=== PATIENT | female | born 1985 | race Caucasian/White ===

== ENCOUNTER 2023-05-05 10:11 | Outpatient (CLI) | payer OTHER ==
--- NOTE | 2023-05-05 10:55 | Sleep Patient Instructions ---
Sleep Center Visit Summary - Patient Visit Information Reason for Visit: Initial consult for evaluation of sleep disordered breathing and other sleep issues. - Patient Instructions Instructions Attached: Sleep Study Additional Instructions: You will be completing a sleep study, either an in-lab polysomnography (PSG) or home sleep study (HST). You will follow-up in the sleep care office after the sleep study is completed to hear the results and talk about therapy, if needed. You will be called by our office staff to schedule this appointment, but you may contact us with any questions. - Clinic Information Contact: [facility] [address] [place] [address] [email or web address] T: [phone]
--- NOTE | 2023-05-05 11:00 | SLEEP CARE CONSULTATION ---
Information from patient questionnaire entered by Lucy Adames. I have reviewed and concur with the information entered by Lucy Adames. This document represents the service I personally performed and the decisions made by me, Georgie Dunlap ARNP. History of Present Illness Service Date and Time: 05/05/2023 1011 Reason for Visit: New patient Chief Complaint: reports: Unrefreshed sleep, Snoring, Fatigue Date of Onset: 2YRS Usual bedtime: 9PM Time it takes to fall asleep: 15-30MIN Snores at night: Yes Observed to quit breathing while asleep: No Number of times waking at night: 1-2 Reasons for waking at night: reports: Bathroom, Other (UNKNOWN). denies: Choking, Gasping for air Toss, Turn, or Twitch while sleeping: Yes Recalls having dreams: Yes Usually gets out of bed at: 525AM; weekends sometimes 0800 Feels refreshed in the morning: No Morning headache: Yes (2-3 times a week; 30 mins to 1 hr) Sleepy or fatigued during the day: Yes Ever fallen asleep while driving: No Takes day naps: Yes (usually on weekends for 1.5-2 hours) Dreams during day naps: Yes Prior sleep studies: No Additional HPI information: I had the pleasure of seeing PHILIPP ESPOSITO today regarding the possibility of her having a sleep disorder. Her current complaints are unrefreshed sleep, snoring and fatigue. She says she thinks she sleeps more than other people. She has been told by numerous roommates that she snored loudly. Her father was diagnosed with sleep apnea in the last couple years and is on a CPAP. She says he was always a loud snorer and there are many snorers in the family. She says she has noticed that she is more tired than others she has roomed with and will sleep for 9-10 hours of sleep if she does not have an alarm. She says when she wakes up she feeling tired but can feel mostly rested if able to get 9.5 hours of sleep. She says that she has noticed a "snort" awakening sometimes but denies feeling short of air or gasping. - Parasomnia Symptoms Ever been unable to move upon waking from sleep: No Walks in sleep: No Talks in sleep: No Ever acted out dreams in sleep: No Ever felt weak in the knees when startled or emotional: No Bothered by creepy, crawly, restless sensations in legs: No Problems with memory or concentration: Yes (both) Subjective Initial [place] Sleepiness Scale score: 9 (03/27/23) Past Medical History Past Medical History: reports: Other (no significant medical history) Social History The patient's occupation is a [employer]. Patient is Single and lives in . Have you smoked in the past 12 months: No Alcohol use: Yes Alcohol amount and frequency: 2-3 DRINKS 0-2 X A MONTH Caffeine use: Yes Caffeine amount and frequency: 1 LARGE COFFEE PER DAY Family History Family history of sleep disordered breathing: Yes Family Hx Sleep Apnea: Father: Snoring, Sleep apnea - Treated Allergies and Home Medications Known drug allergies: No Drug allergies reviewed: Yes Home medication list reviewed: Yes Allergy and home medication list: Home Medications Medication Instructions Recorded Confirmed Last Taken Type Acetaminophen [Tylenol] See Rx Instructions .ROUTE .COMPLEX 05/05/23 05/05/23 Unknown History Norgestimate-Ethinyl Estradiol See Rx Instructions .ROUTE .COMPLEX 05/05/23 05/05/23 Unknown History [Ortho Tri-Cyclen 28 Tablet] Review of Systems Cardiovascular: denies: high blood pressure Gastrointestinal: denies: heartburn Neurological: reports: headaches Psychiatric: denies: anxiety, depression Ear/Nose/Throat: reports: wisdom teeth removed. denies: tonsillectomy Endocrine: denies: thyroid disease Immunologic: reports: allergies to food or environment (seasonal) Physical Exam Vital signs obtained and entered by: LUCY Anderson MA Blood Pressure: 140/81 (LEFT ARM) Cuff size: regular Heart Rate: 70 O2 Saturation: 90 Height: 5 ft 4.5 in Weight: 147 lb 6.4 oz Body Mass Index: 24.9 BMI Classification: Normal Neck circumference: 12.5 Mouth and throat: narrow oropharynx Soft palate: long Hard palate: normal Uvula: normal Uvula visualization: 25% Mallampati Class III Tongue: enlarged in size with teeth mulligan on lateral edges Tonsils: 2+ Neck: normal w/o lymphadenopathy or thyromegaly Heart: regular rate and rhythm Lungs: clear bilaterally Impression and Plan 1. Suspected Obstructive Sleep Apnea-Hypopnea Syndrome, as suggested by a history of loud and irregular snoring, morning headache, unrefreshed sleep and cognitive impairment. Narrow oropharynx and obesity are common predisposing factors for obstructive sleep apnea-hypopnea syndrome. I recommend proceeding to polysomnography to confirm the diagnosis and to assess severity. If the patient has significant sleep disordered breathing, a manual CPAP titration study will also be performed to find the optimal treatment pressure. I informed the patient of what the sleep studies involve and after some discussion, obtained agreement to proceed. The pathophysiology of obstructive sleep apnea-hypopnea syndrome was discussed with the patient and health risks of cardiovascular and cerebrovascular disease if not treated. Risks of drowsy driving discussed in detail and patient advised to avoid long distance driving and to green chain puller at the first sign of drowsiness. Patient agreed to plan. * Schedule polysomnography. * Avoid long distance driving or driving when feeling sleepy. * Avoid alcohol, sedative and muscle relaxant around bedtime. * Attempt to lose weight. * Review instructions provided by trained office staff on how to prepare for the sleep study. * Return for follow-up after sleep study completed. Visit Type: In Office Time Spent with Patient (minutes): 30 Provider Statement: I spent 100% of the Face to Face Visit with the patient with greater than 50% spent counseling the patient and coordination of care.
[2023-05-05 11:06] VITALS: BP 140/81; O2SAT 90
== END 2023-05-05 10:12 | disposition home or self-care (01) ==
LOC: SC 10:11
PROVIDERS: ATTEND Nurse Practitioner Family
DX: R06.83 Snoring (principal); G47.8 Other sleep disorders; R51.9 Headache, unspecified; R53.83 Other fatigue; R41.89 Other symptoms and signs involving cognitive functions and awareness
CPT/HCPCS: 99203; 99212

== ENCOUNTER 2023-06-12 19:31 | Outpatient (CLI) | payer OTHER | END 2023-06-12 19:32 | disposition home or self-care (01) | LOC: SC 19:31 | PROVIDERS: ATTEND Nurse Practitioner Family | DX: G47.8 Other sleep disorders (principal); R51.9 Headache, unspecified; R53.83 Other fatigue | CPT/HCPCS: 95810 ==

== ENCOUNTER 2023-07-17 19:35 | Outpatient (CLI) | payer OTHER | END 2023-07-17 19:36 | disposition home or self-care (01) | LOC: SC 19:35 | PROVIDERS: ATTEND Nurse Practitioner Family | DX: R06.83 Snoring (principal); R41.89 Other symptoms and signs involving cognitive functions and awareness; R51.9 Headache, unspecified; G47.8 Other sleep disorders | CPT/HCPCS: 95810 ==

== ENCOUNTER 2023-07-24 13:36 | Outpatient (CLI) | payer OTHER ==
--- NOTE | 2023-07-24 14:10 | Sleep Patient Instructions ---
Sleep Center Visit Summary - Patient Visit Information Reason for Visit: Sleep study follow-up - Patient Instructions Instructions Attached: Snoring Tips Prevent Additional Instructions: Your sleep study today was negative for significant sleep disordered breathing. However, you did have elevated respiratory episodes when sleeping on your back. You should avoid sleeping on your back to control these respiratory episodes. You were found to have episodes of snoring. There are different ways to control snoring including weight loss, oral devices made by a dentist or surgical options through ENT specialist. You should not use oral devices that do not fit properly because they can affect your bite. You should also check insurance coverage of oral devices for snoring because they may not be cover well. You may obtain a referral to an ENT specialist through your primary provider. Follow-up as needed. - Clinic Information Contact[facility] [address] [place] [address] [email or web address] T: [phone]
--- NOTE | 2023-07-24 14:12 | SLEEP CARE CONSULTATION ---
Information from patient questionnaire entered by Laura Adames. I have reviewed and concur with the information entered by Laura Adames. This document represents the service I personally performed and the decisions made by , Georgie Dunlap ARNP. History of Present Illness Service Date and Time: 07/24/2023 1336 Initial [place] Sleepiness Scale score: 9 (03/27/23) Current [place] Sleepiness Scale score: 11 (07/24/23) Additional HPI information: PHILIPP ESPOSITO returns for follow up and results of the recently performed polysomnography. The patient was informed of the following findings: No significant sleep disordered breathing with an average AHI of 4.1 and darrius oxygen saturation of 87%. I explained the pathophysiology behind obstructive sleep apnea. Patient does not have sleep apnea and was advised how weight gain could increase the risk of developing sleep apnea in the future. Patient does not have significant sleep disordered breathing but has elevated AHI in supine position so advised positional therapy. Methods to achieve positional management therapy were discussed; such as, positioning with pillows, wearing a T-shirt with tennis balls sewn into the back or commercially available products. Patient had light to loud snoring. Snoring can be reduced by weight loss. Weight loss is best achieved with diet consult. Patient instructed to contact PCP for referral. Snoring can also be treated with an oral appliance from a dentist. Advised to check insurance coverage. In addition, an ENT evaluation can be do to see if other treatment is indicated. Patient counseled not drink alcohol less than 4 hours before bedtime as it can increase snoring and apnea. Patient was cautioned about risks of drowsy driving until sleepiness symptoms resolve. Sleep Study - Results Type of Sleep Study: Polysomnography (COMPLETED 07/17/23) Prior sleep studies: No Polysomnography/Home Sleep Study results: IMPRESSION: The quality of the study is good. The patient had minimally reduced sleep efficiency. The sleep architecture was relatively normal considering the first-night effect. Respiratory monitoring showed no significant sleep disordered breathing obstructive sleep apnea-hypopnea (AHI = 4.1) or hypoxia (darrius oxygen saturation of 87% and only 0.6% to the total sleep time was spent with oxygen saturation below 90%). The few respiratory events occurred almost exclusively during supine sleep (supine AHI = 5.1; non- supine = 0.80). Snore was light to loud in intensity. There was no significant periodic leg movement of sleep. Cardiac rhythm was normal sinus rhythm without significant arrhythmia. No abnormal behavior (parasomnia) observed during the night. Allergies and Home Medications Known drug allergies: No Drug allergies reviewed: Yes Home medication list reviewed: Yes (no changes) Allergy and home medication list: Allergies No Known Drug Allergies Allergy (Verified 05/05/23 10:31) Review of Systems Review of systems same as previous: Yes (NO CHANGE) Physical Exam Vital signs obtained and entered by: LAURA Anderson MA Blood Pressure: 122/99 (LEFT ARM) Cuff size: regular Heart Rate: 83 O2 Saturation: 98 Height: 5 ft 4.5 in Weight: 148 lb 12.8 oz Body Mass Index: 25.1 BMI Classification: Overweight Impression and Plan 1. Snoring but no significant sleep disordered breathing. However, her supine AHI was minimally elevated and she should avoid sleeping supine. Patient advised that often weight loss will reduce snoring as well as apnea risk. An oral appliance can also be used for snoring. This would require a dental consultation. Patient cautioned not to use other online appliances as can cause bite issues. Patient is advised to check if insurance will cover. An ENT consult can also be helpful to determine if any other treatment is an option. * Avoid supine sleep * Maintain a healthy weight * Avoid alcohol consumption near bedtime * The patient is cautioned about driving until sleepiness is completely resolved. * Return as needed for follow up. Counseling Topics: Weight loss health impact Follow up with Sleep Care in: as needed Visit Type: In Office Time Spent with Patient (minutes): 14 Provider Statement: I spent 100% of the Face to Face Visit with the patient with greater than 50% spent counseling the patient and coordination of care.
[2023-07-24 14:16] VITALS: BP 122/99; O2SAT 98
== END 2023-07-24 13:37 | disposition home or self-care (01) ==
LOC: SC 13:36
PROVIDERS: ATTEND Nurse Practitioner Family
DX: R06.83 Snoring (principal); E66.3 Overweight; Z68.25 Body mass index [BMI] 25.0-25.9, adult
CPT/HCPCS: 99212

== ENCOUNTER 2023-10-22 08:21 | Emergency (ER) | payer OTHER ==
--- NOTE | 2023-10-22 10:52 | ED Physician Documentation ---
PD HPI NVD - Stated complaint Stated Complaint: DIARRHEA,STOMACH PX - Chief complaint Chief Complaint: Abd Pain - History obtained from History obtained from: Patient - Additonal information Additional information: The patient comes to the emergency department with chief complaint of nausea, vomiting, and diarrhea that started last night. The patient states she had been feeling fine during the day and has not not had any sick contacts that she knows of. She states that she began to feel nauseated and then started to have watery diarrhea and then vomited several times. She states she felt quite awful overnight but began to feel slightly better this morning, though she is still nauseated. She states her diarrhea has slowed down. She called the nurse hotline as she is in the [place] and they told her to come here. The patient denies any blood in her diarrhea. She has not been deployed anywhere exotic recently. She states she is otherwise fairly healthy. No other complaints at this time. PD PAST MEDICAL HISTORY - Past Medical History Past Medical History: No - Past Surgical History Past Surgical History: No - Present Medications Home Medications: Ambulatory Orders Medication Instructions Recorded Confirmed Acetaminophen [Tylenol] See Rx Instructions .ROUTE .COMPLEX 05/05/23 10/22/23 Norgestimate-Ethinyl Estradiol See Rx Instructions .ROUTE .COMPLEX 05/05/23 10/22/23 [Ortho Tri-Cyclen 28 Tablet] Loperamide [Imodium] 2 mg PO DAILY PRN #4 cap 10/22/23 Ondansetron Odt [Zofran] 4 mg TL Q6H PRN #14 tablet 10/22/23 SUMAtriptan [Imitrex] 50 mg PO ONCE PRN 10/22/23 10/22/23 - Allergies Allergies/Adverse Reactions: Allergies Allergy/AdvReac Type Severity Reaction Status Date / Time No Known Drug Allergies Allergy Verified 10/22/23 08:35 - Social History Does the pt smoke?: No Smoking Status: Never smoker Does the pt drink ETOH?: Yes Does the pt have substance abuse?: No - Immunizations Immunizations are current?: Yes PD ED PE NORMAL - Vitals Vital signs reviewed: Yes - General General: Alert and oriented X 3, No acute distress, Well developed/nourished - HEENT HEENT: Atraumatic, PERRL, EOMI, Moist mucous membranes - Neck Neck: Supple, no meningeal sign - Cardiac Cardiac: RRR, No murmur - Respiratory Respiratory: No respiratory distress, Clear bilaterally - Abdomen Abdomen: Soft, Non tender, Non distended - Derm Derm: Normal color, Warm and dry, No rash - Extremities Extremities: No deformity, No edema - Neuro Neuro: Other (Grossly intact) - Psych Psych: Normal mood, Normal affect Results - Vitals Vitals: Vital Signs - 24 hr 10/22/23 08:31 Temperature 36.7 C Heart Rate 92 Respiratory 15 Rate Blood Pressure 156/90 H O2 Saturation 100 PD Medical Decision Making - ED course Complexity details: considered differential, d/w patient ED course: I discussed with the patient that her symptoms are indicative of a likely viral gastroenteritis. She has been given a dose of Zofran here in the emergency department and I have sent a prescription for Zofran and Imodium to the pharmacy of her choice. We discussed the need for getting plenty of fluids and we discussed the usual indications for return. Departure - Departure Disposition: 01 Home, Self Care Clinical Impression: Gastroenteritis Condition: Stable Assessment: Your symptoms are most indicative of a viral illness causing vomiting and diarrhea. This is being going around heavily in the community and you most likely have the same thing. You have been treated with a dose of nausea medicine here and a prescription for the same plus some Imodium has been electronically transmitted to the [facility] pharmacy in [place]. Please take the next couple of days off work. In general, the worst of these illnesses is the first 24 hours after which symptoms may last, especially diarrhea, for several days to week. You should be doing quite a bit better by Thursday and should be able to get back to work by then. Please be sure to get plenty of clear liquids to drink. Do not try to eat solids until you have been at least 24 hours without any nausea or vomiting. Please schedule a follow-up appointment with your primary doctor as needed. Instructions: ED Gastroenteritis Viral Prescriptions: Loperamide [Imodium] 2 mg PO DAILY PRN #4 cap PRN Reason: Diarrhea Ondansetron Odt [Zofran] 4 mg TL Q6H PRN #14 tablet PRN Reason: Nausea / Vomiting Forms: PCP List, Activity restrictions
[2023-10-22] MEDS: ONDANSETRON ODT 4 MG TABLET TL STA (10:55)
[2023-10-22 11:08] VITALS: BP 137/99; O2SAT 99
== END 2023-10-22 11:02 | disposition home or self-care (01) ==
LOC: ED 08:21
DX: K52.9 Noninfective gastroenteritis and colitis, unspecified (principal); Z79.899 Other long term (current) drug therapy; Z79.3 Long term (current) use of hormonal contraceptives
CPT/HCPCS: 99283